=== PATIENT | male | born 2000 | race Two or more races ===

== ENCOUNTER 2025-01-21 15:06 | Emergency (ER) | payer BC ==
[~2025-01-21] VITALS: Ht 175.3 cm; Wt 70.3 kg
[2025-01-21 15:10] VITALS: TEMP 98.3
[2025-01-21] MEDS ORDERED: ONDANSETRON HCL/PF 4 MG/2 ML VIAL ONE ×3 (15:32→18:49)
[2025-01-21] MEDS ORDERED: FAMOTIDINE/PF INJ 20 MG/2 ML VIAL IV ONE (15:32)
[2025-01-21] MEDS ORDERED: KETOROLAC TROMETHAMINE 15 MG/ML VIAL ONE (15:32)
[2025-01-21] MEDS: IV NS 0.9% 1,000 ML BAG IV ONE ×2 (15:40→17:00)
[2025-01-21] MEDS: ONDANSETRON HCL/PF 4 MG/2 ML VIAL IVP ONE (15:40)
[2025-01-21] MEDS: KETOROLAC TROMETHAMINE 15 MG/ML VIAL IV ONE (15:41)
[2025-01-21] MEDS: FAMOTIDINE/PF INJ 20 MG/2 ML VIAL IV ONE (15:42)
[2025-01-21 15:51] LABS: PLATELET COUNT (AUTO) 355 K/uL (150-450); RED BLOOD CELL COUNT(AUTO) 5.71 MIL/uL (4.5-6.0); RED CELL DISTRIBUTION WIDTH 12.9 % (11.5-15.0); WHITE BLOOD COUNT (AUTO) 19.6 K/uL (4.3-11.0)
[2025-01-21 15:59] LABS: CALCIUM, SERUM 10.4 mg/dL (8.5-10.1); CREATININE 1.4 mg/dL (0.6-1.3); SODIUM SERUM 136.0 mmol/L (136-145); UREA NITROGEN, BLOOD 20.0 mg/dL (7-18)
[2025-01-21 16:05] LABS: ASPARTATE AMINOTRANSFERASE 42.0 U/L (15-37); TOTAL PROTEIN, SERUM 8.5 g/dL (6.4-8.2)
[2025-01-21] MEDS ORDERED: LORAZEPAM 4 MG/ML VIAL IV ONE (16:30)
[2025-01-21] MEDS ORDERED: MORPHINE SULFATE INJ 4 MG/ML DISP.SYRIN ONE (16:32)
[2025-01-21] MEDS: ONDANSETRON HCL/PF - ER 4 MG/2 ML VIAL IV ONE (16:34)
[2025-01-21] MEDS: MORPHINE SULFATE INJ 2 MG/ML DISP.SYRIN IV ONE (16:35)
[2025-01-21] MEDS ORDERED: IV NS 0.9% 250 ML IV ONE (16:36)
[2025-01-21] MEDS ORDERED: IOHEXOL-300 100 ML VIAL IV ONE (16:36)
[2025-01-21] MEDS ORDERED: ACETAMINOPHEN ES 500 MG TABLET ONE (17:47)
[2025-01-21] MEDS: ACETAMINOPHEN ES 500 MG TABLET PO ONE (17:50)
[2025-01-21] MEDS ORDERED: ONDA4TAB5 PO (18:37)
[2025-01-21] MEDS: ONDANSETRON HCL/PF 4 MG/2 ML VIAL IV ONE (18:59)
[2025-01-21 19:17] VITALS: BP 125/87; O2SAT 97
[2025-01-22 21:07] LABS: HBSAG SCREEN Negative (Negative); HEPATITIS A AB, IgM Negative (Negative); HEPATITIS B CORE AB, IgM Negative (Negative)
== END 2025-01-21 19:00 | disposition home or self-care (01) ==
LOC: ER 15:13
DX: R10.13 Epigastric pain (principal); R11.2 Nausea with vomiting, unspecified; R19.7 Diarrhea, unspecified; R79.89 Other specified abnormal findings of blood chemistry; R07.9 Chest pain, unspecified; R06.02 Shortness of breath; F41.9 Anxiety disorder, unspecified; D72.829 Elevated white blood cell count, unspecified; Z88.1 Allergy status to other antibiotic agents; Z91.040 Latex allergy status
CPT/HCPCS: 99285; 96374; 96361; 96375; 93005; 80074; 71045; 96376; 76700; 76870; 74177; 85025; 80048; 83690; 80076; 36415; 80320; J2270; J1308; J2405 ×4; J7030 ×2; J7050; Q9967; J1885; J2060; G0480